=== PATIENT | female | born 1960 | race Caucasian/White ===

== ENCOUNTER → 2016-11-02 | Outpatient (CLI) | payer OTHER ==
--- NOTE | 2016-11-02 11:06 | MM ---
Reason for exam: follow-up at short interval from prior study. Last mammogram was performed 7 months ago. History: Took hormonal contraceptives for 8 months beginning at age 17. Taking progesterone beginning at age 56. Physical Findings: Nurse did not find any significant physical abnormalities on exam. MG Diagnostic Mammo LT w CAD CC, MLO, ML, and spot compression CC view(s) were taken of the left breast. Prior study comparison: April 07, 2016, left breast MG work up mamm w CAD LT. April 05, 2016, bilateral MG screening mammo w CAD. The breast tissue is heterogeneously dense. This may lower the sensitivity of mammography. Focal asymmetry in the left upper outer quadrant, less distinct than priors. No significant new findings when compared with previous films. These results were verbally communicated with the patient and result sheet given to the patient on 11/02/16. ASSESSMENT: Probably benign, BI-RAD 3 RECOMMENDATION: Follow-up diagnostic mammogram of both breasts in 6 months.
== END | disposition home or self-care (01) ==
LOC: RADMAMWWP 09:36
PROVIDERS: ATTEND Obstetrics & Gynecology
DX: R92.8 Other abnormal and inconclusive findings on diagnostic imaging of breast (principal)

== ENCOUNTER → 2017-05-06 | Outpatient (CLI) | payer OTHER ==
--- NOTE | 2017-05-06 12:24 | MM ---
Reason for exam: follow-up at short interval from prior study. Last mammogram was performed 6 months ago. History: Took hormonal contraceptives for 8 months beginning at age 17. Took progesterone for 6 months beginning at age 56. Physical Findings: Nurse did not find any significant physical abnormalities on exam. MG Diagnostic Mammo w CAD ANDIE Bilateral CC and MLO view(s) were taken. ML, spot compression MLO, and spot compression CC view(s) were taken of the right breast. Prior study comparison: November 02, 2016, left breast MG diagnostic mammo LT w CAD. April 07, 2016, left breast MG work up mamm w CAD LT. The breast tissue is heterogeneously dense. This may lower the sensitivity of mammography. Density 7 o'clock region right breast 14cm from nipple. These results were verbally communicated with the patient and result sheet given to the patient on 05/06/17. ASSESSMENT: Incomplete: need additional imaging evaluation, BI-RAD 0 RECOMMENDATION: Ultrasound of the right breast.
--- NOTE | 2017-05-06 12:26 | USB ---
Reason for exam: additional evaluation requested from abnormal screening. History: Took hormonal contraceptives for 8 months beginning at age 17. Took progesterone for 6 months beginning at age 56. US Breast Limited RT Right breast ultrasound demonstrates a node at 9 o'clock and a 0.3 x 0.3 x 0.2cm oval, retroareolar, cystic lesion at the posterior nipple. These results were verbally communicated with the patient and result sheet given to the patient on 05/06/17. ASSESSMENT: Probably benign, BI-RAD 3 RECOMMENDATION: Follow-up diagnostic mammogram and ultrasound of the right breast in 6 months.
== END | disposition home or self-care (01) ==
LOC: RADMAMWWP 10:13
PROVIDERS: ATTEND Family Medicine
DX: R92.8 Other abnormal and inconclusive findings on diagnostic imaging of breast (principal)
CPT/HCPCS: 76642; G0204

== ENCOUNTER → 2017-11-28 | Outpatient (CLI) | payer OTHER ==
--- NOTE | 2017-11-29 08:32 | MM ---
Reason for exam: follow-up at short interval from prior study. Last mammogram was performed 7 months ago. History: Took hormonal contraceptives for 8 months beginning at age 17. Took progesterone for 6 months beginning at age 56. Physical Findings: Nurse did not find any significant physical abnormalities on exam. MG Diagnostic Mammo RT w CAD CC, MLO, ML, spot compression CC, and spot compression MLO view(s) were taken of the right breast. Prior study comparison: May 06, 2017, bilateral MG diagnostic mammo w CAD ANDIE. November 02, 2016, left breast MG diagnostic mammo LT w CAD. Focal asymmetry middle CC view and upper right MLO view. Area disperses on compression. Mild residual. Ultrasound recommended. These results were verbally communicated with the patient and result sheet given to the patient on 11/28/17. ASSESSMENT: Incomplete: need additional imaging evaluation, BI-RAD 0 RECOMMENDATION: Ultrasound of the right breast.
--- NOTE | 2017-11-29 08:34 | USB ---
Reason for exam: follow-up at short interval from prior study. History: Took hormonal contraceptives for 8 months beginning at age 17. Took progesterone for 6 months beginning at age 56. US Breast RT Right complete breast ultrasound includes all four quadrants, the retroareolar region and axilla. Finding demonstrates a 0.3 x 0.4 x 0.4cm hypoechoic lesion at 1 o'clock, short term follow up recommended, a 0.8 x 0.5 x 0.6cm lymph node at 9 o'clock and a 0.3 x 0.2 x 0.3cm cystic lesion at the posterior nipple. These results were verbally communicated with the patient and result sheet given to the patient on 11/28/17. ASSESSMENT: Probably benign, BI-RAD 3 RECOMMENDATION: Follow-up diagnostic mammogram of both breasts in 6 months. Ultrasound of the right breast in 6 months.
== END | disposition home or self-care (01) ==
LOC: RADMAMWWP 14:37
PROVIDERS: ATTEND Family Medicine
DX: R92.2 Inconclusive mammogram (principal); R92.8 Other abnormal and inconclusive findings on diagnostic imaging of breast
CPT/HCPCS: 77065

== ENCOUNTER → 2018-07-25 | Outpatient (CLI) | payer OTHER ==
--- NOTE | 2018-07-25 14:17 | MM ---
Reason for exam: follow-up at short interval from prior study. Last mammogram was performed 8 months ago. History: Took hormonal contraceptives for 8 months beginning at age 17. Took progesterone for 6 months beginning at age 56. Physical Findings: Nurse did not find any significant physical abnormalities on exam. MG 3D Diag Mammo W/Cad ANDIE Bilateral CC and MLO view(s) were taken. Prior study comparison: November 28, 2017, right breast MG diagnostic mammo RT w CAD. May 06, 2017, bilateral MG diagnostic mammo w CAD ANDIE. The breast tissue is heterogeneously dense. This may lower the sensitivity of mammography. No suspicious abnormality. No significant new findings when compared with previous films. These results were verbally communicated with the patient and result sheet given to the patient on 07/25/18. ASSESSMENT: Negative, BI-RAD 1 RECOMMENDATION: Routine screening mammogram of both breasts in 1 year.
--- NOTE | 2018-07-25 14:18 | USB ---
Reason for exam: follow-up at short interval from prior study. History: Took hormonal contraceptives for 8 months beginning at age 17. Took progesterone for 6 months beginning at age 56. US Breast RT Right complete breast ultrasound includes all four quadrants, the retroareolar region and axilla. Finding demonstrates a 8 x 5 x 4mm oval lymph node at 9 o'clock. No cystic/solid lesion seen. These results were verbally communicated with the patient and result sheet given to the patient on 07/25/18. ASSESSMENT: Benign, BI-RAD 2 RECOMMENDATION: Routine screening mammogram of both breasts in 1 year.
== END | disposition home or self-care (01) ==
LOC: RADMAMWWP 13:13
PROVIDERS: ATTEND Obstetrics & Gynecology
DX: R92.8 Other abnormal and inconclusive findings on diagnostic imaging of breast (principal)
CPT/HCPCS: 77062; 77066

== ENCOUNTER → 2019-11-30 | Outpatient (CLI) | payer OTHER ==
--- NOTE | 2019-12-03 10:06 | MM ---
Reason for exam: screening (asymptomatic). Last mammogram was performed 1 year and 4 months ago. History: Took hormonal contraceptives for 8 months beginning at age 17. Took progesterone for 6 months beginning at age 56. Physical Findings: A clinical breast exam by your physician is recommended on an annual basis and results should be correlated with mammographic findings. MG 3D Screening Mammo W/Cad Bilateral CC and MLO view(s) were taken. Prior study comparison: July 25, 2018, bilateral MG 3d diag mammo w/cad ANDIE. November 28, 2017, right breast MG diagnostic mammo RT w CAD. The breast tissue is heterogeneously dense. This may lower the sensitivity of mammography. No significant changes when compared with prior studies. ASSESSMENT: Benign, BI-RAD 2 RECOMMENDATION: Routine screening mammogram of both breasts in 1 year.
== END | disposition home or self-care (01) ==
LOC: RADMAMWWP 09:18
PROVIDERS: ATTEND Obstetrics & Gynecology
DX: Z12.31 Encounter for screening mammogram for malignant neoplasm of breast (principal)
CPT/HCPCS: 77063; 77067

== ENCOUNTER → 2020-12-01 | Outpatient (CLI) | payer OTHER ==
--- NOTE | 2020-12-02 13:52 | MM ---
Reason for exam: screening (asymptomatic). Last mammogram was performed 1 year ago. History: Patient is postmenopausal. Took hormonal contraceptives for 8 months beginning at age 17. Taking estrogen beginning at age 59. Took progesterone for 6 months beginning at age 56. Physical Findings: A clinical breast exam by your physician is recommended on an annual basis and results should be correlated with mammographic findings. MG 3D Screening Mammo W/Cad Bilateral CC and MLO view(s) were taken. Prior study comparison: November 30, 2019, bilateral MG 3d screening mammo w/cad. July 25, 2018, bilateral MG 3d diag mammo w/cad ANDIE. The breast tissue is heterogeneously dense. This may lower the sensitivity of mammography. Focal asymmetry inner left breast is stable. No significant changes when compared with prior studies. ASSESSMENT: Benign, BI-RAD 2 RECOMMENDATION: Routine screening mammogram of both breasts in 1 year.
== END | disposition home or self-care (01) ==
LOC: RADMAMWWP 09:47
PROVIDERS: ATTEND Obstetrics & Gynecology
DX: Z12.31 Encounter for screening mammogram for malignant neoplasm of breast (principal); Z78.0 Asymptomatic menopausal state
CPT/HCPCS: 77063; 77067

== ENCOUNTER → 2021-12-03 | Outpatient (CLI) | payer BC ==
--- NOTE | 2021-12-04 14:27 | MM ---
Reason for Exam: Screening (asymptomatic). Last screening mammogram was performed 12 month(s) ago. Patient History: Menarche at age 14. First Full-Term at age 32. Late child-bearing (after 32). Postmenopausal. Currently using Estrogen, starting at age 59. Progesterone for 6 months from age 56 until age 56. Hormonal Contraceptives for 8 months from age 17 until age 18. Risk Values: Najma 5 year model risk: 1.9%. NCI Lifetime model risk: 10.2%. Prior Study Comparison: 07/25/2018 Bilateral Diagnostic Mammogram, [facility]. 11/30/2019 Bilateral Screening Mammogram, [facility]. 12/01/2020 Bilateral Screening Mammogram, [facility]. Tissue Density: There are scattered fibroglandular densities. Findings: Analyzed By CAD. Chronic nodularity is present upper posterior portions of the bilateral breasts. Focal asymmetry is within the medial upper left breast appears stable. No suspicious groups of microcalcifications, spiculated or lobular masses, architectural distortion or other secondary signs of malignancy are mammographically apparent. Overall Assessment: Benign, BI-RAD 2 Management: Screening Mammogram of both breasts in 1 year. A negative mammogram report should not preclude additional follow up of suspicious palpable abnormalities. Patient should continue monthly self breast exam. A clinical breast exam by your physician is recommended on an annual basis and results should be correlated with mammographic findings. Electronically signed and approved by: Adis Pierre D.O. Radiologis
== END | disposition home or self-care (01) ==
LOC: RADMAMWWP 13:57
PROVIDERS: ATTEND Obstetrics & Gynecology
DX: Z12.31 Encounter for screening mammogram for malignant neoplasm of breast (principal); Z78.0 Asymptomatic menopausal state
CPT/HCPCS: 77063; 77067

== ENCOUNTER → 2022-03-23 | Outpatient (CLI) | payer BC ==
--- NOTE | 2022-03-23 12:12 | XR ---
Lumbosacral spine HISTORY: Osteoarthritis hips, back pain 5 views of lumbosacral spine No comparisons There may be a spinal curvature although this could be positional. There is no evident spondylolysis or spondylolisthesis. Bone mineralization is reduced. Lumbar vertebral bodies show preserved height. Anterolisthesis grade 1 L4-5. Loss of disc height at intervertebral levels L1-2, L2-3, L5-S1. Scleros is in the posterior elements of the lower lumbar spine is consistent with facet arthropathy. There is mild multilevel spondylosis. IMPRESSION: Degenerative disc disease, osteopenia, facet arthropathy.
== END | disposition home or self-care (01) ==
LOC: RADXRMAIN 10:43
PROVIDERS: ATTEND Family Medicine
DX: M51.36 Other intervertebral disc degeneration, lumbar region (principal); M47.816 Spondylosis without myelopathy or radiculopathy, lumbar region; M85.88 Other specified disorders of bone density and structure, other site
CPT/HCPCS: 72110

== ENCOUNTER 2022-03-30 09:20 | Day surgery (SDC) | payer BC ==
[~2022-03-30 09:20] MED LIST: LACTATED RINGERS 1,000 ML IV SCH; LIDOCAINE 1% (10MG/ML) FOR IV START INTRADERMA PRN
[2022-03-30 11:07] VITALS: RESP 16; TEMP 96.8
[2022-03-30] MEDS ORDERED: PROPOFOL 10 MG/ML 20 ML VIAL IV ONE (11:50)
--- NOTE | 2022-03-30 12:08 | P.PCN ---
Date of Procedure: 03/30/22 Procedure(s) Performed: BRIEF HISTORY: Patient is a 61-year-old pleasant white female scheduled for an elective colonoscopy as a part of evaluation of intermittent rectal bleeding for the last 6 months duration. PROCEDURE PERFORMED: Colonoscopy. PREOPERATIVE DIAGNOSIS: .Intermittent rectal bleeding IV sedation per Anesthesia. PROCEDURE: After informed consent was obtained, the patient, was brought into the endoscopy unit. IV sedation was administered by Anesthesia under continuous monitoring. Digital rectal examination was normal. Initially the Olympus CF-160 flexible video colonoscope was then inserted in the rectum, gradually advanced into the cecum without any difficulty. Careful examination was performed as the scope was gradually being withdrawn. Ileocecal valve and the appendiceal orifice were visualized and appeared normal. Prep was excellent. Mucosa of the cecum, ascending colon, transverse colon, descending colon, sigmoid colon, and rectum appeared normal. Retroflexion was performed in the rectum and grade 2 internal hemorrhoidswere seen. The patient tolerated the procedure well. IMPRESSION: Normal-appearing colon from rectum to cecum no evidence of colorectal neoplasia . Grade 2 internal hemorrhoids. RECOMMENDATIONS: Findings of this examination were discussed with the patient as well as a family. She was advised to be a high-fiber diet and take fiber supplements a regular basis. Recommend repeat screening colonoscopy in 10 years.
[2022-03-30 12:26] VITALS: BP 114/76; PULSE 70
== END 2022-03-30 12:49 | disposition home or self-care (01) ==
LOC: ORWHC2ENDO 09:20
PROVIDERS: ATTEND Internal Medicine Gastroenterology
DX: K62.5 Hemorrhage of anus and rectum (principal); K64.1 Second degree hemorrhoids; E07.9 Disorder of thyroid, unspecified; R32 Unspecified urinary incontinence; Z79.890 Hormone replacement therapy; Z79.899 Other long term (current) drug therapy
CPT/HCPCS: 45378; J2704; 45385

== ENCOUNTER → 2023-01-06 | Outpatient (CLI) | payer BC ==
--- NOTE | 2023-01-07 20:14 | MM ---
Reason for Exam: Screening (asymptomatic). Last mammogram was performed 1 year(s) and 2 month(s) ago. Patient History: Menarche at age 14. First Full-Term at age 32. Late child-bearing (after 32). Postmenopausal. Estrogen, from age 59 until age 61. Progesterone for 6 months from age 56 until age 56. Hormonal Contraceptives for 8 months from age 17 until age 18. Risk Values: Najma 5 year model risk: 2.0%. NCI Lifetime model risk: 10.0%. Prior Study Comparison: 11/30/2019 Bilateral Screening Mammogram, [facility]. 12/01/2020 Bilateral Screening Mammogram, [facility]. 12/03/2021 Bilateral MG 3D screening mammo w/cad, [facility]. Tissue Density: There are scattered fibroglandular densities. Findings: Analyzed By CAD. Unchanged bilateral axillary tail lymph node on the right. Unchanged asymmetric density central outer aspect of the right breast posterior depth. There is no suspicious group of microcalcifications or new suspicious mass in either breast. Overall Assessment: Benign, BI-RAD 2 Management: Screening Mammogram of both breasts in 1 year. . Patient should continue monthly self-breast exams. A clinical breast exam by your physician is recommended on an annual basis. This exam should not preclude additional follow-up of suspicious palpable abnormalities. Note on Najma scores and lifetime risk: 1. A Najma score greater than 3% is considered moderate risk. If this is the case, consider specialist referral to assess eligibility for a risk reducing agent. 2. If overall lifetime risk for the development of breast cancer is 20% or higher, the patient may qualify for future screening with alternating mammogram and breast MRI. Electronically signed and approved by: Bailee Saravia M.D. Radiologist
== END | disposition home or self-care (01) ==
LOC: RADMAMWWP 09:51
PROVIDERS: ATTEND Obstetrics & Gynecology
DX: Z12.31 Encounter for screening mammogram for malignant neoplasm of breast (principal); Z78.0 Asymptomatic menopausal state
CPT/HCPCS: 77063; 77067

== ENCOUNTER → 2023-04-22 | Outpatient (CLI) | payer BC ==
--- NOTE | 2023-04-24 22:21 | MR ---
EXAMINATION TYPE: MR brain wo/w con DATE OF EXAM: 04/22/2023 COMPARISON: NONE HISTORY: 62-year-old female G44.82, Severe sudden headaches associated with sexual activity, Evaluate for aneurysm TECHNIQUE: Multiplanar, multisequence images of the brain and brainstem were acquired before and aft er administration of 9 mL IV Gadavist. Diffusion weighted imaging is performed. FINDINGS: No evidence for acute infarction, hemorrhage, mass, mass effect, midline shift, herniation, effacemen t of basal cisterns, or extra-axial fluid collection. The ventricles and sulci are age-appropriate mild volume loss overlying the bilateral cerebral convex ities. Major intracranial flow voids are intact. T2/FLAIR weighted sequences show mild scattered bright signal foci primarily within the subcortical r egion, especially of the bifrontal lobes. Midline structures demonstrate normal morphology. The craniocervical junction is normal. Post contrast images demonstrate no evidence of pathologic enhancement. Dural venous sinuses are pat ent. Scattered mild mucosal thickening throughout the ethmoid air cells. Small amount of scattered fluid w ithin the bilateral mastoid air cells. IMPRESSION: 1. No acute intracranial abnormality or enhancing intracranial lesion seen. Mild burden of chronic sm all vessel ischemic disease. 2. Small amount of scattered fluid in the bilateral mastoid air cells of questionable clinical signif icance. Correlate for any mastoid can't exclude mastoiditis.
--- NOTE | 2023-04-24 22:24 | MR ---
EXAMINATION TYPE: MR angio head wo con DATE OF EXAM: 04/22/2023 COMPARISON: MRI brain same day HISTORY: 62-year-old female G44.82, Severe sudden headaches associated with sexual activity, Evaluate for aneurysm TECHNIQUE: High-resolution 3-D [id number] imaging of the north fork of [place]. Rotational 3-D reconst ructions generated on a dedicated independent workstation. FINDINGS: Both vertebral arteries are codominant. Vertebral and basilar arteries are patent. Slightly hypoplastic P1 segment right posterior cerebral artery supplemented by a right posterior com municating artery. Posterior circulation is otherwise patent. The bilateral internal carotid arteries show normal flow related enhancement. There is hypoplastic A1 segment right anterior cerebral artery. Anterior circulation otherwise patent. No aneurysmal change is seen. IMPRESSION: Some normal anatomic variation as above. No large vessel intracranial arterial occlusion, significant stenosis, or aneurysmal change is seen.
== END | disposition home or self-care (01) ==
LOC: RADMRIMAIN 13:59
PROVIDERS: ATTEND Family Medicine
DX: G44.82 Headache associated with sexual activity (principal); I67.82 Cerebral ischemia
CPT/HCPCS: 70544; 70553; A9585

== ENCOUNTER → 2023-08-18 | Outpatient (CLI) | payer BC ==
--- NOTE | 2023-08-18 12:58 | NM ---
EXAMINATION TYPE: NM stress cardiolite complete DATE OF EXAM: 08/18/2023 COMPARISON: NONE CLINICAL INDICATION: Female, 63 years old with history of R07.89 CHEST PAIN R94.31; TECHNIQUE: After the intravenous administration of 10.2 mCi Tc 99m Sestamibi - Rest images obtained 55 minutes post injection. The patient exercised using a MANA protocol and 1 minute prior to peak exercise was injected with 25.3 mCi Tc 99m Sestamibi - Stress images obtained 5 minutes post injectio n. FINDINGS: Targeted heart rate (135 bpm) was achieved during performance of the study (84% maximal stress achiev ed, total exercise time 6 minutes). Review of stress and rest SPECT images demonstrates a fixed anter oseptal apical defect which is larger on rest suggesting attenuation artifact. No distinct reversibil ity is seen. Gated analysis shows normal wall motion with an estimated left ventricular ejection frac tion of 70 %. TID is calculated at 0.91, within normal limits. IMPRESSION: Fixed defect at the apical anteroseptal wall is larger on rest suggesting attenuation artifact rather than a small area of old infarct. Clinically correlate. No suspicious reversibility seen.
--- NOTE | 2023-08-18 14:22 | CA ---
Exercise Stress Test Report Name: Sarah Rocha Exam Date: 08/18/2023 10:02 Exam Location: [place] Stress Ht (in): 67 Wt (lb): 180 BSA: 1.93 Ordering Phys: Sendy Wells MD Referring Phys: SENDY WELLS Technologist: SYEDA Age: 63 Gender: F : 1960 Procedure CPT: Indications: R07.89 CHEST PAIN R94.31 ICD-10 Codes: Patient History: CHEST PAIN Medications: FLONASE, MELOXICAM, SYNTHROID, FESOTERODINE, MULTIVITAMIN, BIOFLEX, MAGNESIUM, CALCIUM, VITAMIN D Meds past 24 hrs: Pretest Chest Pain: STRESS TEST Jax Protocol Exercise Duration (min:sec): 06:[address] Depressions (mm): Angina Score: Looney Score: Resting HR (bpm): 66 Peak HR (bpm): 135 Resting BP (mmHg): 109 / 81 Peak BP (mmHg): 168 / 90 MPHR: 159 Target HR: 135 % MPHR: 85 METS: 7.1 Total Dose: Peak Dose: Atropine: Double Product: 54315 BP Response: Stress Termination: MAX EXERTION/TARGET HR Stress Symptoms: CAROLYN Stress Summary: ECG ANALYSIS Resting ECG: Stress ECG: CONCLUSIONS Average exercise tolerance Mild EKG changes in response to exercise Dr. Edy Godfrey MD (Electronically Signed) Final Date: 18 August 2023 14:22
== END | disposition home or self-care (01) ==
LOC: RADNMMAIN 08-16 08:08
PROVIDERS: ATTEND Family Medicine
DX: R07.89 Other chest pain (principal); R94.31 Abnormal electrocardiogram [ECG] [EKG]
CPT/HCPCS: 93017; 78452; A9500

== ENCOUNTER → 2024-01-10 | Outpatient (CLI) | payer BC | END | disposition home or self-care (01) | LOC: LABPRL 09:04 | PROVIDERS: ATTEND Family Medicine | DX: Z00.00 Encounter for general adult medical examination without abnormal findings (principal); E03.9 Hypothyroidism, unspecified; G47.00 Insomnia, unspecified | CPT/HCPCS: 80053; 80061; 82306; 83036; 84443; 85027 ==

== ENCOUNTER → 2024-04-26 | Outpatient (CLI) | payer BC ==
--- NOTE | 2024-04-27 12:24 | MM ---
Reason for Exam: Screening (asymptomatic). Last mammogram was performed 1 year(s) and 3 month(s) ago. Patient History: Menarche at age 14. First Full-Term at age 32. Late child-bearing (after 32). Postmenopausal. Estrogen, from age 59 until age 61. Progesterone for 6 months from age 56 until age 56. Hormonal Contraceptives for 8 months from age 17 until age 18. Risk Values: Najma 5 year model risk: 2.0%. NCI Lifetime model risk: 9.7%. Prior Study Comparison: 12/01/2020 Bilateral Screening Mammogram, [facility]. 12/03/2021 Bilateral MG 3D screening mammo w/cad, [facility]. 01/06/2023 Bilateral MG 3D screening mammo w/cad, [facility]. Tissue Density: There are scattered areas of fibroglandular density. Findings: Analyzed By CAD. Right breast: There is no suspicious group of microcalcifications or new suspicious mass. Benign-appearing calcifications right breast. Left breast: There is no suspicious group of microcalcifications or new suspicious mass. Benign-appearing calcifications left breast. Overall Assessment: Benign, BI-RAD 2 Management: Screening Mammogram of both breasts in [address] [facility] will attempt to contact patient to return for supplemental views and ultrasound if indicated. Patient should continue monthly self-breast exams. A clinical breast exam by your physician is recommended on an annual basis. This exam should not preclude additional follow-up of suspicious palpable abnormalities. Note on Najma scores and lifetime risk: 1. A Najma score greater than 3% is considered moderate risk. If this is the case, consider specialist referral to assess eligibility for a risk reducing agent. 2. If overall lifetime risk for the development of breast cancer is 20% or higher, the patient may qualify for future screening with alternating mammogram and breast MRI. [facility], , 04/27/2024 11:48 AM. Electronically signed and approved by: Donald Farooq DO
== END | disposition home or self-care (01) ==
LOC: RADMAMWWP 10:45
PROVIDERS: ATTEND Obstetrics & Gynecology
DX: Z12.31 Encounter for screening mammogram for malignant neoplasm of breast (principal); Z78.0 Asymptomatic menopausal state; R92.323 Mammographic fibroglandular density, bilateral breasts
CPT/HCPCS: 77063; 77067